=== PATIENT | female | born 1965 | race Caucasian/White ===

== ENCOUNTER 2023-03-15 16:12 | Emergency (ER) | payer BC, SELFPAY ==
[2023-03-15] VITALS (30 sets, daily range): BP systolic 135–152; BP diastolic 84–98; PULSE 50–72; RESP 7–14; TEMP 35.6; O2SAT 93–98; BMI 27.5
--- NOTE | 2023-03-15 16:30 | CRLHL7_ITS ---
For Patients: As a result of the Century Cures Act, medical imaging exams and procedure reports are released immediately into your electronic medical record. You may view this report before your referring provider. If you have questions, please contact your health care provider. INDICATION: Weakness. TECHNIQUE: CT of the head without contrast. Coronal and sagittal reformats are included. COMPARISON: Head CT from 04/02/2013. FINDINGS: No CT evidence of acute cortical infarct. No loss of yao white matter differentiation. No hyperdense vessels to suggest intracranial thrombus. No acute intracranial hemorrhage. No mass effect or midline shift. No hydrocephalus or extra-axial collections. White matter is within normal limits for age. Mild generalized parenchymal volume loss. No acute osseous abnormalities. Left-sided mastoidectomy changes with soft tissue filling the external auditory canal and extending into the middle ear cleft. Normal soft tissues. IMPRESSION: IMPRESSION:1. No CT evidence of acute cortical infarct. No acute intracranial hemorrhage. No other acute intracranial findings. Please note that all CT scans at this facility use dose modulation, iterative reconstruction, and/or weight-based dosing when appropriate to reduce radiation dose to as low as reasonably achievable. Dictated by Benson Harvey MD @ 03/15/2023 5:55:03 PM (Electronically Signed)
--- NOTE | 2023-03-15 16:35 | ED.GENADULT ---
HPI - General Adult General Chief complaint: Weakness Stated complaint: Tired Time Seen by Provider: 03/15/23 16:17 History of Present Illness HPI narrative: Patient is a 58 year white female has history of depression, history of alcohol use in the past by chart review, was brought in [facility] from [facility] where she was having difficulty in managing and getting along and has had significant weakness. She feels when I discussed with her what happened that she might have double dosed on her medications. She denies any falls injuries. Paramedics noted she was quite somnolent, and has slurred speech she does not smell of alcohol or ever. Patient will be assessed in the ED per the above-mentioned complaints. At this point she denies any chest pain breathing problem weakness in her arms or legs other than generalized weakness. No falls trauma or injury by her report. she denies narcotic use Related Data Home Medications Medication Instructions Recorded Confirmed atenolol 50 mg tablet 50 mg PO DAILY 03/15/23 03/15/23 buspirone 10 mg tablet 10 mg PO BID 03/15/23 03/15/23 clonazepam 1 mg tablet 1 mg PO BID 03/15/23 03/15/23 levetiracetam 500 mg tablet mg PO 03/15/23 primidone 50 mg tablet mg PO 03/15/23 tramadol 50 mg tablet 50 mg PO BID PRN pain 03/15/23 03/15/23 venlafaxine 150 mg 150 mg PO QAM 03/15/23 03/15/23 capsule,extended release 24 hr Allergies Allergy/AdvReac Type Severity Reaction Status Date / Time No Known Drug Allergies Allergy Verified 03/15/23 16:27 Review of Systems Status of ROS: Reports: 6 or more systems reviewed and unremarkable except as noted in History and below [facility] Social History Smoking Status: Unknown if ever smoked Exam Narrative: Exam Narrative: Objective vital signs show her respiratory rate slightly slow O2 sat excellent Alert orient x3 although somewhat slurred speech and slow to respond. She does not have any focal neurologic findings on upper lower extremities no facial asymmetry Her cognition appears normal when she does speak and answer questions Neck is supple no trauma about the head lungs are clear heart rhythm regular without murmur abdomen benign soft extremities are no edema neurologic nonfocal , moves all extremities Const: Vital Signs, click to edit/add: Vital Signs - 24 hr 03/15/23 16:21 03/15/23 16:30 03/15/23 16:42 Temperature 96.0 F L Pulse Rate 51 L Pulse Rate [Pulse Oximeter] 53 L Respiratory Rate 10 L Blood Pressure Blood Pressure [Ri ght Upper Arm] 145/95 H Pulse Oximetry 97 96 98 Oxygen Delivery Me thod Room Air 03/15/23 16:45 03/15/23 16:55 03/15/23 17:01 Temperature Pulse Rate 50 L Pulse Rate [Pulse Oximeter] Respiratory Rate 12 Blood Pressure 139/91 H Blood Pressure [Ri ght Upper Arm] Pulse Oximetry 94 Oxygen Delivery Me thod 03/15/23 17:02 03/15/23 17:15 03/15/23 17:37 Temperature Pulse Rate 61 54 L Pulse Rate [Pulse Oximeter] Respiratory Rate 7 L Blood Pressure 149/90 H Blood Pressure [Ri ght Upper Arm] Pulse Oximetry 97 96 Oxygen Delivery Me thod 03/15/23 17:45 03/15/23 18:00 03/15/23 18:01 Temperature Pulse Rate 66 60 Pulse Rate [Pulse Oximeter] Respiratory Rate 12 Blood Pressure Blood Pressure [Ri ght Upper Arm] Pulse Oximetry 95 98 Oxygen Delivery Me thod 03/15/23 18:02 03/15/23 18:15 03/15/23 18:17 Temperature Pulse Rate 60 55 L Pulse Rate [Pulse Oximeter] Respiratory Rate 14 Blood Pressure 141/91 H Blood Pressure [Ri ght Upper Arm] Pulse Oximetry 95 95 Oxygen Delivery Me thod Course Vital Signs Vital signs: Initial Vital Signs Temperature 96.0 F L 03/15/23 16:21 Temperature Source Temporal Artery Scan 03/15/23 16:21 Pulse Rate 53 L 03/15/23 16:21 Respiratory Rate 10 L 03/15/23 16:21 Blood Pressure 145/95 H 03/15/23 16:21 Blood Pressure Mean 111 H 03/15/23 16:21 Blood Pressure Position Supine 03/15/23 16:21 Pulse Oximetry 97 03/15/23 16:21 Oxygen Delivery Method Room Air 03/15/23 16:21 Vital Signs Temperature 96.0 F L 03/15/23 16:21 Pulse Rate 53 L 05/17/23 16:21 Respiratory Rate 10 L 03/15/23 16:21 Blood Pressure 145/95 H 03/15/23 16:21 Pulse Oximetry 97 03/15/23 16:21 Oxygen Delivery Method Room Air 03/15/23 16:21 Temperature 96.0 F L 03/15/23 16:21 Pulse Rate 55 L 03/15/23 20:45 Respiratory Rate 14 03/15/23 19:34 Blood Pressure 135/84 03/15/23 20:03 Pulse Oximetry 93 03/15/23 20:45 Oxygen Delivery Method Room Air 03/15/23 16:21 Medical Decision Making MDM Narrative Medical decision making narrative: [age] year white female with history of depression, history of alcohol use presents with significant weakness, somnolence, inability to care for self at home. At this point I think she certainly could have taken a double dose of medication, she does have Klonopin on her list that could certainly be sedating. She should have the above studies including a CT scan of the head, lab studies, urine tox will give IV fluid, will give Narcan 2 mg IV. Patient likely will need to be observed for a lengthy period of time and will make plans for observation status in the hospital pending her blood and imaging studies. Addendum: I do not have a lot of past history on the patient, but given that she is on tramadol, Klonopin, primidone and may have taken a double dose of the certainly is could be very sedating for prolonged period. Will call poison Control make sure they do not have any other recommendations. At this point I think she may need prolonged monitoring and may put in the hospital for that reason perhaps even social service consult as needed regarding her home situation. Patient's head CT is read as negative by Radiology, EKG shows sinus bradycardia rate of 49 beats per minute incomplete right bundle-branch block some T-wave inversion, there is no old EKG for comparison, the patient's white count hemoglobin are normal. Urinalysis basically negative. We did discuss with poison Control they felt maximal effect will be about 8:00 a.m. tonight from her ingestion or potential extra dosage of medications, she reports that was unintentional, at this point I think it be reasonable to observe her in the ED see how she is doing and if she is doing well and labs all reassuring I think she could probably go home later tonight. For addendum: 6:38 p.m. the patient has a CT scan of the head looks unremarkable, her laboratory studies show normal white count hemoglobin as mention normal INR ER profile is unremarkable CRP is 1.9, urinalysis looks negative, salicylate negative urine tox screen is positive for barbiturates and she is on primidone Tylenol is negative, alcohol level is 0.16% which is twice the legal limit of intoxication. Also positive for marijuana, troponin is negative. I think given the patient's alcohol level the fact that she is already on some sedating medications and the fact that she is waking up more active able to drink and eat a small amount of food and has reassuring labs studies I think we can allow her to go home later if she is doing better she denies any chest pain, breathing problem, fevers chills. I think most of her issues from alcohol intoxication mixed with her medications at home and she is clearing these. poison Control felt that she is able to go home later and that she should be clearing most of her drugged by about 8:00 a.m., she will need a responsible adult to get her home later I think we can observe her for the next several hours if she is clinically not intoxicated up walking in stable we can allow to go home. Lab Data Labs: Lab Results 03/15/23 03/15/23 03/15/23 Range/Units 16:27 16:31 16:49 WBC 4.90 (4.50-11.00) K/uL RBC 4.47 (4.00-5.20) m/uL Hgb 14.4 (12.0-16.0) gm/dL Hct 43.2 (33.0-51.0) % MCV 97 (80-100) fL MCH 32 (26-34) pg MCHC 33 (32-36) gm/dL RDW Coeff of Elliot 12.5 (11.5-15.5) % Plt Count 239 (140-440) K/uL Neut % (Auto) 62.3 (42.0-72.0) % Lymph % (Auto) 30.8 (20-44) % [place] % (Auto) 6.5 (0.0-11.0) % Eos % (Auto) 0.2 (0.0-7.0) % Baso % (Auto) 0.2 (0.0-3.0) % Neut # (Auto) 3.05 (1.7-7.0) K/uL Lymph # (Auto) 1.51 (0.90-2.90) K/uL [place] # (Auto) 0.30 (0.00-0.90) K/UL Eos # (Auto) 0.01 (0.00-0.50) K/uL Baso # (Auto) 0.01 (0.00-0.30) K/uL INR 0.95 (0.91-1.10) Sodium 135 (135-149) mmol/L Potassium 3.9 (3.6-5.1) mmol/L Chloride 99 (96-114) mmol/L Carbon Dioxide 26 (20-32) mmol/L BUN 7 (7-30) mg/dL Creatinine 0.6 (0.5-1.5) mg/dL Estimated Creat Clear 93.09 Estimated GFR 105 ml/min Glucose 81 (60-115) mg/dL Calcium 9.0 (8.4-10.6) mg/dL Total Bilirubin 0.3 (0.1-1.5) mg/dL Direct Bilirubin 0.2 (0.0-0.5) mg/dL AST 27 (12-35) U/L ALT 16 (4-35) U/L Alkaline Phosphatase 62 (40-150) U/L C-Reactive Protein 1.9 H (0.5-1.0) mg/dL Total Protein 7.5 (6.0-8.3) g/dL Albumin 4.5 (3.3-5.0) g/dL Urine Color Yellow (Yellow) Urine Appearance Clear (Clear) Urine pH 6.0 (5.0-8.5) Ur Specific [place] <= 1.005 (1.000-1.030) Urine Protein Negative (Negative) Urine Glucose (UA) Negative (Negative) Urine Ketones Negative (Negative) Urine Blood Negative (Negative) Urine Nitrite Negative (Negative) Urine Bilirubin Negative (Negative) Urine Urobilinogen 0.2 (0.2-1.0) Ur Leukocyte Esterase Negative (Negative) Urine RBC 0-2 (0-2) Urine WBC 0-2 (0-5) Ur Squamous Epith Cells None (None-Few) Urine Bacteria None (None) Salicylates < 1.0 L (1.0-10) mg/dL Urine Opiates Screen Negative (Negative) Ur Oxycodone Screen Negative (Negative) Urine Methadone Screen Negative (Negative) Ur Propoxyphene Screen Negative (Negative) Acetaminophen < 10.0 L (10.0-30.0) ug/mL Ur Barbiturates Screen POSITIVE A* (Negative) U Tricyclic Antidepress Negative (Negative) Ur Phencyclidine Scrn Negative (Negative) Ur Amphetamines Screen Negative (Negative) U Methamphetamines Scrn Negative (Negative) U Benzodiazepines Scrn Negative (Negative) Urine Cocaine Screen Negative (Negative) U Marijuana (THC) Screen POSITIVE A* (Negative) Ur Drug Screen Comment See Note Ethyl Alcohol 0.16 H (0.01-0.03) % SARS-CoV-2 (PCR) Negative SARS-CoV-2 (Negative) Influenza Type A (PCR) Negative PCR FLU A (Negative) Influenza Type B (PCR) Negative PCR FLU B (Negative) RSV (PCR) Negative PCR RSV (Negative) POC Troponin I 0.00 L (0.01-0.04) ng/ml Discharge Plan Discharge Clinical Impression: Somnolence, Alcohol intoxication Patient Disposition: Home w/ Parent or Adult Condition: Stable Instructions: Abuse of Alcohol (ED), Medication Safety for Older Adults (ED) Additional Instructions: Avoid alcohol, discuss her medication use with your family doctor, recommend stay with someone tonight, light diet, return as needed. Activity Level: Light activity Discharge Diet: Full Liquid Prescriptions: No Action primidone 50 mg tablet PO levetiracetam 500 mg tablet PO clonazepam 1 mg tablet 1 mg PO BID venlafaxine 150 mg capsule,extended release 24hr 150 mg PO QAM tramadol 50 mg tablet 50 mg PO BID PRN (Reason: pain) buspirone 10 mg tablet 10 mg PO BID atenolol 50 mg tablet 50 mg PO DAILY Stand Alone Forms: Off[facility] Info Instructions
[2023-03-15] MEDS: 0.9 % SODIUM CHLORIDE 1000 ml 1,000 ML 6000 ML IV (16:39)
[2023-03-15] MEDS: NALOXONE 1 MG/ML SYRINGE 2 MG IV (16:39)
[2023-03-15 16:46] LABS: Amphetamine Screen Urine Negative (Negative); Appearance Urine Clear (Clear); Benzodiazepines Screen Urine Negative (Negative); Bilirubin Urine Negative (Negative); Blood Urine Negative (Negative); Cocaine Screen Urine Negative (Negative); Color Urine Yellow (Yellow); Glucose Urine Negative (Negative); Ketones Urine Negative (Negative); Leukocyte Esterase Urine Negative (Negative); Methadone Screen Urine Negative (Negative); Methamphetamines Screen Urine Negative (Negative); Nitrite Urine Negative (Negative); Opiate Screen Urine Negative (Negative); Oxycodone Screen Urine Negative (Negative); Phencyclidine Screen Urine Negative (Negative); Protein Urine Negative (Negative); Specific Gravity Urine <= 1.005 (1.000-1.030); Tricyclic Antidepressant Urine Negative (Negative); Urobilinogen Urine 0.2 (0.2-1.0)
[2023-03-15 16:50] LABS: Cannabinoid Screen Urine POSITIVE (Negative)
[2023-03-15 16:51] LABS: Barbiturate Screen Urine POSITIVE (Negative)
[2023-03-15 16:54] LABS: RBC Urine 0-2 (0-2); WBC Urine 0-2 (0-5)
--- NOTE | 2023-03-15 17:00 | ED.NURSE ---
Poison control contacted for recommendations. PC recommends monitoring for ENDOSCOPY REGISTERED NURSE depression, supportive care for symptoms. Due to uncertain time of ingestion and unknown dosages, PC recommend monitoring pt overnight.
[2023-03-15 17:25] LABS: Basophils Absolute Auto 0.01 K/uL (0.00-0.30); Basophils Percent Auto 0.2 % (0.0-3.0); Eosinophils Absolute Auto 0.01 K/uL (0.00-0.50); Eosinophils Percent Auto 0.2 % (0.0-7.0); Hematocrit 43.2 % (33.0-51.0); Hemoglobin* 14.4 gm/dL (12.0-16.0); Lymphocytes Absolute Auto 1.51 K/uL (0.90-2.90); Lymphocytes Percent Auto 30.8 % (20-44); Mean Corpuscular HGB Conc 33 gm/dL (32-36); Mean Corpuscular Hemoglobin 32 pg (26-34); Mean Corpuscular Volume 97 fL (80-100); Monocytes Percent Auto 6.5 % (0.0-11.0); Neutrophils Absolute Auto 3.05 K/uL (1.7-7.0); Neutrophils Percent Auto 62.3 % (42.0-72.0); Platelet Count* 239 K/uL (140-440); RDW Coefficient of Variation % 12.5 % (11.5-15.5); Red Blood Count 4.47 m/uL (4.00-5.20)
[2023-03-15 17:32] LABS: Slide Review Reflex No
--- NOTE | 2023-03-15 17:48 | ED.NURSE ---
Pt more alert at this time, is Oriented x4. Pt is still slurring her words a bit. Pt was able to stand and pivot independently to use the commode. Pt is making phone calls independently.
[2023-03-15 18:08] LABS: Albumin* 4.5 g/dL (3.3-5.0); Chloride* 99 mmol/L (96-114)
[2023-03-15 18:09] LABS: Potassium* 3.9 mmol/L (3.6-5.1); Sodium* 135 mmol/L (135-149)
[2023-03-15 18:11] LABS: Creatinine* 0.6 mg/dL (0.5-1.5); Est. Creatinine Clearance* 93.09; Estimated Glomerular Filt Rate 105 ml/min
[2023-03-15 18:12] LABS: Alanine Aminotransferase* 16 U/L (4-35); Alkaline Phosphatase* 62 U/L (40-150); Aspartate Amino Transferase* 27 U/L (12-35); Bilirubin Direct* 0.2 mg/dL (0.0-0.5); Bilirubin Total* 0.3 mg/dL (0.1-1.5); Blood Urea Nitrogen* 7 mg/dL (7-30); Carbon Dioxide* 26 mmol/L (20-32); Glucose* 81 mg/dL (60-115); Total Protein* 7.5 g/dL (6.0-8.3)
[2023-03-15 18:13] LABS: PCR FLU A Negative PCR FLU A (Negative); PCR FLU B Negative PCR FLU B (Negative); PCR RSV Negative PCR RSV (Negative)
[2023-03-15 18:13] LABS: Ethanol* 0.16 % (0.01-0.03)
[2023-03-15 18:14] LABS: C Reactive Protein* 1.9 mg/dL (0.5-1.0); INR 0.95 (0.91-1.10); Prothrombin Time 13.2 Seconds
[2023-03-15 18:14] LABS: SARS PCR* Negative SARS-CoV-2 (Negative)
[2023-03-15 18:23] LABS: Acetaminophen* < 10.0 ug/mL (10.0-30.0); Salicylate* < 1.0 mg/dL (1.0-10)
[2023-03-15] MEDS: ACETAMINOPHEN 500 MG TABLET 1000 MG PO (18:28)
--- NOTE | 2023-03-15 19:30 | ED.NURSE ---
Pt road tested with walker as assistive device. Pt tolerates ambulation well independently with walker. Pt uses a walker at home to ambulate normally. updated.
--- NOTE | 2023-03-15 20:27 | ED.NURSE ---
[place] provided to patient.
== END 2023-03-15 22:07 | disposition home or self-care (01) ==
PROVIDERS: Emergency Provider Family Medicine; PCP Family Medicine
DX: R40.0 Somnolence (principal); R47.81 Slurred speech
CPT/HCPCS: 36415; 70450; 80048; 80076; 80143; 80179; 80306; 81001; 82077; 84484; 85025; 85610; 86140; 87040; 87086; 87631; 93005; 94761; 99284; 99285; A9270; J2310; J7030

== ENCOUNTER 2023-05-01 11:00 | Emergency (ER) | payer BC, SELFPAY ==
[2023-05-01] VITALS (29 sets, daily range): BP systolic 138–159; BP diastolic 95–119; PULSE 99–134; RESP 20; TEMP 36.7; O2SAT 87–97; BMI 27.5
--- NOTE | 2023-05-01 11:38 | ED.NURSE ---
Contacted daughter, Ellie about patient being in the ED. Daughter would like an update. FELIPE Avila taking over patient care.
--- NOTE | 2023-05-01 12:07 | ED.GENADULT ---
HPI - General Adult General Chief complaint: Neuro Symptoms/Altered Deficit Stated complaint: Severe tremors Time Seen by Provider: 05/01/23 11:28 History of Present Illness HPI narrative: This 58-year-old female comes in with tremors. She has a history of tremors but states that they have been worsening over the past 6 months. Today it is significantly worse despite taking her medications which include clonazepam, primidone, and Keppra. She does report a significant headache today. She does not have any recent injury event. She did have a small drink of alcohol last night but states that this is not symptoms of withdrawal. She has generalized slow tremors involving her whole body. At time she has difficulty with speech related to this. Related Data Home Medications Medication Instructions Recorded Confirmed atenolol 50 mg tablet 50 mg PO DAILY 03/15/23 05/01/23 buspirone 10 mg tablet 10 mg PO BID 03/15/23 05/01/23 clonazepam 1 mg tablet 1 mg PO BID 03/15/23 05/01/23 levetiracetam 500 mg tablet mg PO 03/15/23 primidone 50 mg tablet 50 mg PO 03/15/23 tramadol 50 mg tablet 50 mg PO BID PRN pain 03/15/23 05/01/23 venlafaxine 150 mg 150 mg PO QAM 03/15/23 05/01/23 capsule,extended release 24 hr Allergies Allergy/AdvReac Type Severity Reaction Status Date / Time No Known Drug Allergies Allergy Verified 03/15/23 16:27 Review of Systems Status of ROS: Reports: 10 or more systems reviewed and unremarkable except as noted in History and below Narrative: Constitutional: No fevers, no weight gain or loss. Eyes: No discharge. No vision changes. HENT: No congestion, no sore throat, no ear pain. Cardiovascular: No chest pain, no palpitations. Respiratory: No shortness of breath, no wheezes, no cough. Gastrointestinal: No abdominal pain, no vomiting, no diarrhea. Genitourinary: No dysuria, no hematuria. Musculoskeletal: Normal range of motion. Skin: No rashes, no pruritis. Neurological: Tremors as described above. No unilateral weakness. Endo/Heme/Allergies: No bruising or bleeding. No polydipsia. Pysch: no suicidality, no anxiety, no insomnia. All other systems reviewed and are negative. PFSH PFSH Social History Smoking Status: Unknown if ever smoked Exam Narrative: Exam Narrative: Constitutional: Well-developed, well-nourished, no acute distress. HEENT: Normocephalic, atraumatic. Neck: Normal range of motion. Nontender. Supple. Heart: Regular. No murmurs. Normal rate. Intact distal pulses. Lungs: Clear to auscultation. No chest discomfort. No wheezes, rhonchi, or rales. Abdomen: Normal bowel sounds. Nontender. No rebound tenderness. Genitalia: Deferred. Back: No midline tenderness. Normal range of motion. Extremities: Normal range of motion. No injury. Skin: Intact. No rash. Warm. No erythema or pallor. Neurologic: No altered sensation. No weakness. Alert and oriented. Generalized tremors. Psychiatric: No suicidality. No anxiety or depression. No insomnia. Nursing notes and vitals signs are reviewed. Const: Vital Signs, click to edit/add: Vital Signs - 24 hr 05/01/23 11:09 05/01/23 11:19 05/01/23 11:20 Temperature 98.1 F Pulse Rate 115 H 116 H Pulse Rate [Left P ulse Oximeter] 110 H Pulse Rate [Pulse Oximeter] Respiratory Rate 20 Blood Pressure 157/118 H Blood Pressure [Le ft Arm] Blood Pressure [Le ft Upper Arm] 157/118 H Pulse Oximetry 95 96 [facility] 05/01/23 11:30 05/01/23 11:32 05/01/23 11:45 Temperature Pulse Rate 110 H 107 H 104 H Pulse Rate [Left P ulse Oximeter] Pulse Rate [Pulse Oximeter] Respiratory Rate Blood Pressure 139/112 H Blood Pressure [Le ft Arm] Blood Pressure [Le ft Upper Arm] Pulse Oximetry 95 94 87 L [facility] 05/01/23 11:47 05/01/23 11:48 05/01/23 12:01 Temperature Pulse Rate 107 H 114 H 99 Pulse Rate [Left P ulse Oximeter] Pulse Rate [Pulse Oximeter] Respiratory Rate Blood Pressure 157/112 H Blood Pressure [Le ft Arm] Blood Pressure [Le ft Upper Arm] Pulse Oximetry 97 97 97 Oxygen Delivery Me thod 05/01/23 12:02 05/01/23 12:15 05/01/23 12:17 Temperature Pulse Rate 109 H 114 H 113 H Pulse Rate [Left P ulse Oximeter] Pulse Rate [Pulse Oximeter] Respiratory Rate Blood Pressure 152/119 H 159/116 H Blood Pressure [Le ft Arm] Blood Pressure [Le ft Upper Arm] Pulse Oximetry 97 94 94 Oxygen Delivery Me thod 05/01/23 12:18 05/01/23 12:30 05/01/23 12:32 Temperature Pulse Rate 122 H 112 H 108 H Pulse Rate [Left P ulse Oximeter] Pulse Rate [Pulse Oximeter] Respiratory Rate Blood Pressure 153/104 H Blood Pressure [Le ft Arm] Blood Pressure [Le ft Upper Arm] Pulse Oximetry 96 95 97 Oxygen Delivery Me thod 05/01/23 12:42 05/01/23 12:45 05/01/23 12:47 Temperature Pulse Rate 104 H 103 H Pulse Rate [Left P ulse Oximeter] Pulse Rate [Pulse Oximeter] 107 H Respiratory Rate Blood Pressure 139/95 H Blood Pressure [Le ft Arm] 153/104 H Blood Pressure [Le ft Upper Arm] Pulse Oximetry 92 92 Oxygen Delivery Me thod 05/01/23 13:30 Temperature Pulse Rate Pulse Rate [Left P ulse Oximeter] Pulse Rate [Pulse Oximeter] 101 H Respiratory Rate Blood Pressure Blood Pressure [Le ft Arm] 154/103 H Blood Pressure [Le ft Upper Arm] Pulse Oximetry Oxygen Delivery Sd thod Course Vital Signs Vital signs: Initial Vital Signs Temperature 98.1 F 05/01/23 11:09 Temperature Source Temporal Artery Scan 05/01/23 11:09 Pulse Rate 110 H 05/01/23 11:09 Pulse Rhythm Regular, Irregular 05/01/23 11:09 Respiratory Rate 20 05/01/23 11:09 Blood Pressure 157/118 H 05/01/23 11:09 Blood Pressure Mean 131 H 05/01/23 11:09 Blood Pressure Position Supine 05/01/23 11:09 Pulse Oximetry 95 05/01/23 11:09 Oxygen Delivery Method Room Air 05/01/23 11:09 Vital Signs Temperature 98.1 F 05/01/23 11:09 Pulse Rate 110 H 05/01/23 11:09 Respiratory Rate 20 05/01/23 11:09 Blood Pressure 157/118 H 05/01/23 11:09 Pulse Oximetry 95 05/01/23 11:09 Oxygen Delivery Method Room Air 05/01/23 11:09 Temperature 98.1 F 05/01/23 11:09 Pulse Rate 101 H 05/01/23 13:30 Respiratory Rate 20 05/01/23 11:09 Blood Pressure 154/103 H 05/01/23 13:30 Pulse Oximetry 92 05/01/23 12:47 Oxygen Delivery Method Room Air 05/01/23 11:09 Medical Decision Making MDM Narrative Medical decision making narrative: This patient comes in with worsening tremors as described above. She does have a history of tremors and is taking medications to treat them. She states that tremors were significantly worse today and she also reports a headache with some nausea. CT imaging is not available today because the scanner is not functioning. The patient does not have any new neurologic deficit. She does have generalized tremors when awake. An IV was established where labs were drawn and returned with normal results. Her neurologic exam otherwise also is normal. She did receive a mg of Ativan which brought improvement to her symptoms. When I came into her room for a 2nd visit she had no tremors as she was apparently sleeping. When I aroused her than she began to have tremors again but they were distinctly reduced compared to the initial visit. The patient did receive another mg of Ativan intravenously and at my 3rd visit again she was not at all tremulous while she was resting but when I began to speak to her she had some mild movements. Patient states that her headache and nausea are much improved. I did discuss options of transferring her elsewhere for CT imaging or waiting for an opening for MRI evaluation. She feels okay to return home. She is likely back to her baseline. She states that she has a follow-up appointment with her neurologist in 2 days and feels okay to return home. Lab Data Labs: Lab Results 05/01/23 Range/Units 12:20 WBC 5.68 (4.50-11.00) K/uL RBC 4.62 (4.00-5.20) m/uL Hgb 15.0 (12.0-16.0) gm/dL Hct 43.6 (33.0-51.0) % MCV 94 (80-100) fL MCH 33 (26-34) pg MCHC 34 (32-36) gm/dL RDW Coeff of [place] 13.3 (11.5-15.5) % Plt Count 250 (140-440) K/uL Neut % (Auto) 65.4 (42.0-72.0) % Lymph % (Auto) 25.7 (20-44) % [place] % (Auto) 8.3 (0.0-11.0) % Eos % (Auto) 0.0 (0.0-7.0) % Baso % (Auto) 0.4 (0.0-3.0) % Neut # (Auto) 3.72 (1.7-7.0) K/uL Lymph # (Auto) 1.46 (0.90-2.90) K/uL [place] # (Auto) 0.50 (0.00-0.90) K/UL Eos # (Auto) 0.00 (0.00-0.50) K/uL Baso # (Auto) 0.02 (0.00-0.30) K/uL Sodium 139 (135-149) mmol/L Potassium 3.9 (3.6-5.1) mmol/L Chloride 104 (96-114) mmol/L Carbon Dioxide 25 (20-32) mmol/L BUN 7 (7-30) mg/dL Creatinine 0.5 (0.5-1.5) mg/dL Estimated Creat Clear 111.70 Estimated GFR 109 ml/min Glucose 116 H (60-115) mg/dL Calcium 9.3 (8.4-10.6) mg/dL Discharge Plan Discharge Clinical Impression: Tremors of nervous system Patient Disposition: Home, Self-Care Condition: Improved Additional Instructions: Continue current plans. Follow up with Neurology Clinic as scheduled. Return if worsening symptoms occur. Prescriptions: No Action primidone 50 mg tablet 50 mg PO levetiracetam 500 mg tablet PO clonazepam 1 mg tablet 1 mg PO BID venlafaxine 150 mg capsule,extended release 24hr 150 mg PO QAM tramadol 50 mg tablet 50 mg PO BID PRN (Reason: pain) buspirone 10 mg tablet 10 mg PO BID atenolol 50 mg tablet 50 mg PO DAILY Follow Up/Referrals: Aimee Acosta DO [Primary Care Provider] - Stand Alone Forms: [facility] Info Instructions
[2023-05-01 12:31] LABS: Basophils Absolute Auto 0.02 K/uL (0.00-0.30); Basophils Percent Auto 0.4 % (0.0-3.0); Hematocrit 43.6 % (33.0-51.0); Immature Granulocytes Abs Auto 0.01 K/uL (0.00-0.30); Immature Granulocytes Pct Auto 0.2 %; Lymphocytes Absolute Auto 1.46 K/uL (0.90-2.90); Lymphocytes Percent Auto 25.7 % (20-44); Mean Corpuscular HGB Conc 34 gm/dL (32-36); Mean Corpuscular Hemoglobin 33 pg (26-34); Mean Corpuscular Volume 94 fL (80-100); Monocytes Percent Auto 8.3 % (0.0-11.0); Neutrophils Absolute Auto 3.72 K/uL (1.7-7.0); Neutrophils Percent Auto 65.4 % (42.0-72.0); Platelet Count* 250 K/uL (140-440); RDW Coefficient of Variation % 13.3 % (11.5-15.5); Red Blood Count 4.62 m/uL (4.00-5.20); White Blood Count* 5.68 K/uL (4.50-11.00)
[2023-05-01] MEDS: LORazepam 2 MG/ML inj 1 MG IV ×2 (12:33→13:18)
[2023-05-01 12:48] LABS: Chloride* 104 mmol/L (96-114); Potassium* 3.9 mmol/L (3.6-5.1); Slide Review Reflex No; Sodium* 139 mmol/L (135-149)
[2023-05-01 12:50] LABS: Creatinine* 0.5 mg/dL (0.5-1.5); Estimated Glomerular Filt Rate 109 ml/min
[2023-05-01 12:51] LABS: Blood Urea Nitrogen* 7 mg/dL (7-30); Calcium* 9.3 mg/dL (8.4-10.6); Carbon Dioxide* 25 mmol/L (20-32); Glucose* 116 mg/dL (60-115)
== END 2023-05-01 14:55 | disposition home or self-care (01) ==
PROVIDERS: Emergency Provider Emergency Medicine Emergency Medical Services; PCP Family Medicine
DX: R25.1 Tremor, unspecified (principal); G99.8 Other specified disorders of nervous system in diseases classified elsewhere
CPT/HCPCS: 36415; 80048; 85025; 96374; 96376; 99283; 99284; J2060

== ENCOUNTER 2023-06-02 16:13 | Emergency (ER) | payer BC, SELFPAY ==
[2023-06-02] VITALS (20 sets, daily range): BP systolic 124–159; BP diastolic 82–102; PULSE 53–95; RESP 12; TEMP 36.1; O2SAT 90–99; BMI 27.5
--- NOTE | 2023-06-02 16:46 | CRLHL7_ITS ---
For Patients: As a result of the Century Cures Act, medical imaging exams and procedure reports are released immediately into your electronic medical record. You may view this report before your referring provider. If you have questions, please contact your health care provider. INDICATION: Right upper quadrant pain COMPARISON: CT abdomen and pelvis on September 03, 2018 TECHNIQUE: Real time hardy scale imaging and color Doppler analysis was performed of the right upper quadrant. FINDINGS: The patient`s liver is of normal size and is diffusely echogenic. No suspicious lesions on the provided images. There is no evidence of ascites. The gallbladder is of normal size and there is no evidence of intraluminal stones or sludge. The gallbladder wall measures two mm in thickness. The common bile duct is of normal size and measures 5 mm in diameter at the level of the stephanie hepatis. The visualized pancreas demonstrates a prominent pancreatic duct which measures approximately 4-6 mm with no mass on the provided images. There is no evidence of a stone or hydronephrosis within the right kidney. The right kidney measures 9.4 x 3.7 x 5.3 cm in length. The proximal abdominal aorta is normal in caliber measuring 2.1 cm. IMPRESSION: 1. Normal sonographic appearance of the gallbladder. 2. Liver is diffusely echogenic which may be seen in the setting of parenchymal disease such as steatosis. 3. Visualized pancreas demonstrates a prominent pancreatic duct which measures approximately 4-6 mm with no mass on the provided images. Consider a CT abdomen and pelvis with intravenous contrast for further evaluation. Dictated by Lisy Martinez MD @ 06/02/2023 6:12:09 PM (Electronically Signed)
--- NOTE | 2023-06-02 17:11 | ED.GENADULT ---
HPI - General Adult General Chief complaint: Abdominal Pain Stated complaint: Abdominal pain Time Seen by Provider: 06/02/23 16:40 Source: patient Mode of arrival: ambulatory Limitations: no limitations History of Present Illness HPI narrative: 58-year-old female with a history of depression and alcohol use presenting today with right-sided abdominal pain. She states that the pain started yesterday. Nothing makes it better or worse. She states that she has not eaten anything for an unclear amount of days. She states that she just has no appetite. She also states that she has had decreased fluid intake. She states that she has diarrhea but can not tell me how many times per day. She has no urinary symptoms such as frequency, urgency or dysuria. Denies any blood in her urine. She denies vomiting, fevers, or chills. Last alcoholic drink was this morning. She states that she had a ?couple drinks?. She points to right upper quadrant and the right flank as areas of discomfort. Related Data Home Medications Medication Instructions Recorded Confirmed atenolol 50 mg tablet 50 mg PO DAILY 03/15/23 06/02/23 buspirone 10 mg tablet 10 mg PO BID 03/15/23 06/02/23 clonazepam 1 mg tablet 1 mg PO BID 03/15/23 06/02/23 levetiracetam 500 mg tablet 500 mg PO TID 03/15/23 06/02/23 primidone 50 mg tablet 100 mg PO TID 03/15/23 06/02/23 venlafaxine 150 mg 150 mg PO QAM 03/15/23 06/02/23 capsule,extended release 24 hr latanoprost 0.005 % eye drops 1 drp ophthalmic (eye) QPM 06/02/23 06/02/23 Allergies Allergy/AdvReac Type Severity Reaction Status Date / Time No Known Drug Allergies Allergy Verified 06/02/23 16:50 Review of Systems Status of ROS: Reports: 10 or more systems reviewed and unremarkable except as noted in History and below [facility] Social History Smoking Status: Unknown if ever smoked Non-prescribed substance use: denies use Exam Narrative: Exam Narrative: Well-nourished well-developed patient, acutely intoxicated. Cooperative. Answers questions appropriately. Patient speaks in full sentences without needing to catch their breath. Patient is sleepy, speech is slurred. HEENT: Normocephalic atraumatic. Pupils are equally round reactive to light, But generally dilated. Extraocular muscles are intact. Conjunctivae are moist without any icterus noted. Moist mucous membranes. Posterior pharynx is normal. Neck is soft without any lymphadenopathy or thyromegaly. No masses are appreciated. Cardiovascular: Heart is regular rate and rhythm S1 and S2 are present without any murmurs. Lungs: Clear to auscultation bilaterally no wheezes rhonchi or rales are appreciated. Patient takes deep breaths without any discomfort. Abdomen: Soft and nondistended with normal bowel sounds. No guarding or rebound. No masses or organomegaly appreciated. She does have epigastric tenderness and a positive Bauer sign. A Extremities: Bilateral lower extremities are without edema. Normal DP and PT pulses. Skin: Well perfused without any obvious rashes. Const: Vital Signs, click to edit/add: Vital Signs - 24 hr 06/02/23 16:34 06/02/23 16:36 06/02/23 16:39 Temperature 97.0 F L Pulse Rate 58 L 60 Pulse Rate [Pulse Oximeter] 95 Respiratory Rate 12 Blood Pressure 159/91 H Blood Pressure [Le ft Upper Arm] 159/91 H Pulse Oximetry 92 93 95 Oxygen Delivery [facility] Room Air 06/02/23 17:02 06/02/23 17:23 06/02/23 17:25 Temperature Pulse Rate 59 L Pulse Rate [Pulse Oximeter] Respiratory Rate Blood Pressure 124/82 Blood Pressure [Le ft Upper Arm] Pulse Oximetry 93 96 Oxygen Delivery [facility] 06/02/23 17:30 06/02/23 17:32 06/02/23 17:33 Temperature Pulse Rate 64 62 67 Pulse Rate [Pulse Oximeter] Respiratory Rate Blood Pressure 134/91 H Blood Pressure [Le ft Upper Arm] Pulse Oximetry 95 95 90 Oxygen Delivery Wi thod 06/02/23 18:00 06/02/23 18:02 06/02/23 18:07 Temperature Pulse Rate 71 67 Pulse Rate [Pulse Oximeter] Respiratory Rate Blood Pressure 141/87 H Blood Pressure [Le ft Upper Arm] Pulse Oximetry 96 95 Oxygen Delivery [facility] 06/02/23 18:30 06/02/23 18:32 Temperature Pulse Rate 53 L 65 Pulse Rate [Pulse Oximeter] Respiratory Rate Blood Pressure 132/98 H Blood Pressure [Le ft Upper Arm] Pulse Oximetry 97 95 Oxygen Delivery Me thod Course Course Hospital Course: IV was established and fluids started, patient was given a L of normal saline, and famotidine. Labs were nonspecific. She does not have an elevated white cell count and CRP is minimally elevated. Lactate slightly elevated, repeat lactate cannot be done secondary to the analyzer going down. Blood alcohol was 0.18. Urine drug screen positive for barbiturates. Ultrasound showed a prominent pancreatic duct and a CT scan was recommended for further imaging. CT scan did not show any abnormalities of the pancreas the pancreatic duct, did show Bladder wall thickening. Also showed an age indeterminate compression fracture of thoracic spine. Did re-evaluate the patient at this time, she states that she does not have any tenderness in the middle of her back. When I discussed the imaging results and lab work with the patient she did become very irritated. We discussed that at times discomfort can be caused by unknown reasons. This did not reassure the patient. Vital Signs Vital signs: Initial Vital Signs Temperature 97.0 F L 06/02/23 16:34 Temperature Source Temporal Artery Scan 06/02/23 16:34 Pulse Rate 95 06/02/23 16:34 Pulse Rhythm Regular 06/02/23 16:34 Respiratory Rate 12 06/02/23 16:34 Blood Pressure 159/91 H 06/02/23 16:34 Blood Pressure Mean 113 H 06/02/23 16:34 Blood Pressure Position Semi-Fowlers 06/02/23 16:34 Pulse Oximetry 92 06/02/23 16:34 Oxygen Delivery Method Room Air 06/02/23 16:34 Vital Signs Temperature 97.0 F L 06/02/23 16:34 Pulse Rate 95 06/02/23 16:34 Respiratory Rate 12 06/02/23 16:34 Blood Pressure 159/91 H 06/02/23 16:34 Pulse Oximetry 92 06/02/23 16:34 Oxygen Delivery Method Room Air 06/02/23 16:34 Temperature 97.0 F L 06/02/23 16:34 Pulse Rate 65 06/02/23 18:32 Respiratory Rate 12 06/02/23 16:34 Blood Pressure 132/98 H 06/02/23 18:32 Pulse Oximetry 95 06/02/23 18:32 Oxygen Delivery Method Room Air 06/02/23 16:34 Medical Decision Making MDM Narrative Medical decision making narrative: 58-year-old female, acutely intoxicated with abdominal discomfort. We discussed possible differential diagnoses including gastritis, peptic ulcer disease, small kidney stone. We discussed monitoring for a few days to see if the pain changes. I discussed with her that she should stop drinking alcohol and offered help/resources which she declined at this time. Medical Records Medical records reviewed: Yes I reviewed the patient's medical records Lab Data Lab results reviewed: Yes I reviewed the patient's lab results Labs: Lab Results 06/02/23 06/02/23 Range/Units 17:00 18:15 WBC 5.24 (4.50-11.00) K/uL RBC 4.43 (4.00-5.20) m/uL Hgb 14.4 (12.0-16.0) gm/dL Hct 43.1 (33.0-51.0) % MCV 97 (80-100) fL MCH 33 (26-34) pg MCHC 33 (32-36) gm/dL RDW Coeff of Elliot 13.5 (11.5-15.5) % Plt Count 284 (140-440) K/uL Neut % (Auto) 62.0 (42.0-72.0) % Lymph % (Auto) 30.0 (20-44) % [place] % (Auto) 7.6 (0.0-11.0) % Eos % (Auto) 0.0 (0.0-7.0) % Baso % (Auto) 0.4 (0.0-3.0) % Neut # (Auto) 3.25 (1.7-7.0) K/uL Lymph # (Auto) 1.57 (0.90-2.90) K/uL [place] # (Auto) 0.40 (0.00-0.90) K/UL Eos # (Auto) 0.00 (0.00-0.50) K/uL Baso # (Auto) 0.02 (0.00-0.30) K/uL Abs Immat Gran (auto) 0.00 (0.00-0.30) K/uL Imm/Tot Granulo (auto) 0.0 % Sodium 141 (135-149) mmol/L Potassium 3.5 L (3.6-5.1) mmol/L Chloride 106 (96-114) mmol/L Carbon Dioxide 23 (20-32) mmol/L BUN 6 L (7-30) mg/dL Creatinine 0.6 (0.5-1.5) mg/dL Estimated Creat Clear 93.09 Estimated GFR 105 ml/min Glucose 87 (60-115) mg/dL Lactate 2.0 H (0.5-1.9) mmol/L Calcium 9.3 (8.4-10.6) mg/dL Total Bilirubin 0.3 (0.1-1.5) mg/dL Direct Bilirubin 0.0 (0.0-0.5) mg/dL AST 27 (12-35) U/L ALT 17 (4-35) U/L Alkaline Phosphatase 73 (40-150) U/L C-Reactive Protein 2.6 H (0.5-1.0) mg/dL Total Protein 7.5 (6.0-8.3) g/dL Albumin 4.4 (3.3-5.0) g/dL Lipase 53 (23-300) U/L Urine Color Yellow (Yellow) Urine Appearance Clear (Clear) Urine pH 6.5 (5.0-8.5) Ur Specific [place] <= 1.005 (1.000-1.030) Urine Protein Negative (Negative) Urine Glucose (UA) Negative (Negative) Urine Ketones Negative (Negative) Urine Blood Negative (Negative) Urine Nitrite Negative (Negative) Urine Bilirubin Negative (Negative) Urine Urobilinogen 0.2 (0.2-1.0) Ur Leukocyte Esterase Negative (Negative) Urine RBC 0-2 (0-2) Urine WBC 0-2 (0-5) Ur Squamous Epith Cells Few (None-Few) Urine Bacteria None (None) Salicylates < 1.0 L (1.0-10) mg/dL Urine Opiates Screen Negative (Negative) Ur Oxycodone Screen Negative (Negative) Urine Methadone Screen Negative (Negative) Ur Propoxyphene Screen Negative (Negative) Acetaminophen < 10.0 L (10.0-30.0) ug/mL Ur Barbiturates Screen POSITIVE A (Negative) U Tricyclic Antidepress Negative (Negative) Ur Phencyclidine Scrn Negative (Negative) Ur Amphetamines Screen Negative (Negative) U Methamphetamines Scrn Negative (Negative) U Benzodiazepines Scrn Negative (Negative) Urine Cocaine Screen Negative (Negative) U Marijuana (THC) Screen Negative (Negative) Ur Drug Screen Comment See Note Ethyl Alcohol 0.18 H (0.01-0.03) % Imaging Data CT scan - abdomen: Attestation: I have reviewed the pertinent imaging results. Radiologist's impression: Contrast-enhanced CT of the abdomen and pelvis was performed after administration of 81 cc Isovue 370 IV. Coronal and sagittal reformats were obtained on an independent workstation. COMPARISON: Same-day right upper quadrant ultrasound. CT abdomen pelvis on September 03, 2018. FINDINGS: Chest: Lung bases: No suspicious pulmonary nodule or consolidation. No basilar effusion. Heart base: Unremarkable. Mediastinum: No hiatal hernia. Abdomen/Pelvis: Liver: Non-cirrhotic morphology. No suspicious lesion. Gallbladder: Unremarkable. Bile ducts: No intra or extrahepatic biliary ductal dilatation. Spleen: Normal in size. Splenule. Adrenal glands: Unremarkable. Kidneys: Symmetric enhancement with no hydronephrosis or nephrolithiasis bilaterally. Pancreas: Pancreatic duct is normal in caliber measuring 3 mm at the head. No mass or peripancreatic inflammation. Lymph nodes: No retroperitoneal, mesenteric, inguinal, or pelvic adenopathy by CT criteria. Bowel: Stomach appears grossly normal. Small and large bowel is normal in caliber, without obstruction. Normal appendix (). No pneumatosis, pneumoperitoneum or portal venous gas. Vascular structures: No AAA. The visceral vessels are patent. Patent portal and hepatic veins. Patent splenic and bilateral renal veins. No deep venous thrombosis. Peritoneum: No abdominal/pelvic ascites. Abdominal Wall: Unremarkable. Urinary bladder: Limited evaluation due to underdistention. Circumferential bladder wall thickening with mild mucosal hyperenhancement. Reproductive structures: Hysterectomy. MSK: Age-indeterminate compression fracture of L1 with approximately 20 % height loss and mild osseous retropulsion (), new compared to prior. No aggressive appearing lytic or blastic osseous lesion. Mild multilevel degenerative changes of the spine. IMPRESSION: 1. Age-indeterminate compression fracture of L1 with approximately 20 % height loss and mild osseous retropulsion, new compared to prior CT dated September 03, 2018. Correlate for point tenderness. 2. Normal CT appearance of the pancreas and right upper quadrant. Pancreatic duct is normal in caliber with no mass or peripancreatic inflammation. 3. Circumferential bladder wall thickening with mild mucosal hyper enhancement may be secondary to underdistention and/or cystitis of infectious or inflammatory etiology. Consider correlation with urinalysis and culture. US - abdomen: Attestation: I have reviewed the pertinent imaging results. Radiologist's impression: Right upper quadrant pain COMPARISON: CT abdomen and pelvis on September 03, 2018 TECHNIQUE: Real time hardy scale imaging and color Doppler analysis was performed of the right upper quadrant. FINDINGS: The patient`s liver is of normal size and is diffusely echogenic. No suspicious lesions on the provided images. There is no evidence of ascites. The gallbladder is of normal size and there is no evidence of intraluminal stones or sludge. The gallbladder wall measures two mm in thickness. The common bile duct is of normal size and measures 5 mm in diameter at the level of the stephanie hepatis. The visualized pancreas demonstrates a prominent pancreatic duct which measures approximately 4-6 mm with no mass on the provided images. There is no evidence of a stone or hydronephrosis within the right kidney. The right kidney measures 9.4 x 3.7 x 5.3 cm in length. The proximal abdominal aorta is normal in caliber measuring 2.1 cm. IMPRESSION: 1. Normal sonographic appearance of the gallbladder. 2. Liver is diffusely echogenic which may be seen in the setting of parenchymal disease such as steatosis. 3. Visualized pancreas demonstrates a prominent pancreatic duct which measures approximately 4-6 mm with no mass on the provided images. Consider a CT abdomen and pelvis with intravenous contrast for further evaluation. Discharge Plan Discharge Clinical Impression: Acute alcohol intoxication, Abdominal pain Patient Disposition: Home, Self-Care Condition: Stable Additional Instructions: Recommend of stinging from alcohol use until pain is resolved. Recommend daily omeprazole 20 mg daily-you can purchase this [id number]. This is an antacid medication that will reduce the amount of acid inside your stomach, which can help your discomfort. If you develop fever, vomiting or worsening pain, return to the ED. Otherwise you should follow-up with your primary care provider as needed. Prescriptions: No Action primidone 50 mg tablet 100 mg PO TID Rx Instructions: 2 tabs TID levetiracetam 500 mg tablet 500 mg PO TID Rx Instructions: 1000mg in the am, 1000mg at noon and 500 in the evening. clonazepam 1 mg tablet 1 mg PO BID venlafaxine 150 mg capsule,extended release 24hr 150 mg PO QAM buspirone 10 mg tablet 10 mg PO BID atenolol 50 mg tablet 50 mg PO DAILY latanoprost 0.005 % drops 1 drp ophthalmic (eye) QPM Follow Up/Referrals: Aimee Acosta DO [Primary Care Provider] - Stand Alone Forms: [employer] Info Instructions
[2023-06-02] MEDS: 0.9 % SODIUM CHLORIDE 1000 ml 1,000 ML IV (17:20)
[2023-06-02] MEDS: FAMOTIDINE 20 MG TABLET PO (17:20)
[2023-06-02 17:23] LABS: Albumin* 4.4 g/dL (3.3-5.0); Chloride* 106 mmol/L (96-114)
[2023-06-02 17:24] LABS: Potassium* 3.5 mmol/L (3.6-5.1); Sodium* 141 mmol/L (135-149)
[2023-06-02 17:26] LABS: Alkaline Phosphatase* 73 U/L (40-150); Aspartate Amino Transferase* 27 U/L (12-35); Bilirubin Total* 0.3 mg/dL (0.1-1.5); Blood Urea Nitrogen* 6 mg/dL (7-30); Carbon Dioxide* 23 mmol/L (20-32); Creatinine* 0.6 mg/dL (0.5-1.5); Est. Creatinine Clearance* 93.09; Estimated Glomerular Filt Rate 105 ml/min; Total Protein* 7.5 g/dL (6.0-8.3)
[2023-06-02 17:27] LABS: Alanine Aminotransferase* 17 U/L (4-35); Calcium* 9.3 mg/dL (8.4-10.6); Glucose* 87 mg/dL (60-115); Lipase* 53 U/L (23-300)
[2023-06-02 17:28] LABS: Ethanol* 0.18 % (0.01-0.03)
[2023-06-02 17:29] LABS: C Reactive Protein* 2.6 mg/dL (0.5-1.0)
[2023-06-02 17:36] LABS: Acetaminophen* < 10.0 ug/mL (10.0-30.0); Salicylate* < 1.0 mg/dL (1.0-10)
[2023-06-02 17:50] LABS: Basophils Absolute Auto 0.02 K/uL (0.00-0.30); Basophils Percent Auto 0.4 % (0.0-3.0); Hematocrit 43.1 % (33.0-51.0); Hemoglobin* 14.4 gm/dL (12.0-16.0); Lymphocytes Absolute Auto 1.57 K/uL (0.90-2.90); Mean Corpuscular HGB Conc 33 gm/dL (32-36); Mean Corpuscular Hemoglobin 33 pg (26-34); Mean Corpuscular Volume 97 fL (80-100); Monocytes Percent Auto 7.6 % (0.0-11.0); Neutrophils Absolute Auto 3.25 K/uL (1.7-7.0); Platelet Count* 284 K/uL (140-440); RDW Coefficient of Variation % 13.5 % (11.5-15.5); Red Blood Count 4.43 m/uL (4.00-5.20); White Blood Count* 5.24 K/uL (4.50-11.00)
[2023-06-02 17:51] LABS: Slide Review Reflex No
[2023-06-02 18:31] LABS: Appearance Urine Clear (Clear); Bilirubin Urine Negative (Negative); Blood Urine Negative (Negative); Color Urine Yellow (Yellow); Glucose Urine Negative (Negative); Ketones Urine Negative (Negative); Leukocyte Esterase Urine Negative (Negative); Nitrite Urine Negative (Negative); Protein Urine Negative (Negative); Specific Gravity Urine <= 1.005 (1.000-1.030); Urobilinogen Urine 0.2 (0.2-1.0); pH Urine 6.5 (5.0-8.5)
[2023-06-02 18:35] LABS: Amphetamine Screen Urine Negative (Negative); Barbiturate Screen Urine POSITIVE (Negative); Benzodiazepines Screen Urine Negative (Negative); Cannabinoid Screen Urine Negative (Negative); Cocaine Screen Urine Negative (Negative); Methadone Screen Urine Negative (Negative); Methamphetamines Screen Urine Negative (Negative); Opiate Screen Urine Negative (Negative); Oxycodone Screen Urine Negative (Negative); Phencyclidine Screen Urine Negative (Negative); Tricyclic Antidepressant Urine Negative (Negative)
--- NOTE | 2023-06-02 18:35 | CRLHL7_ITS ---
For Patients: As a result of the Century Cures Act, medical imaging exams and procedure reports are released immediately into your electronic medical record. You may view this report before your referring provider. If you have questions, please contact your health care provider. INDICATION: Epigastric and right upper quadrant pain TECHNIQUE: Contrast-enhanced CT of the abdomen and pelvis was performed after administration of 81 cc Isovue 370 IV. Coronal and sagittal reformats were obtained on an independent workstation. COMPARISON: Same-day right upper quadrant ultrasound. CT abdomen pelvis on September 03, 2018. FINDINGS: Chest: Lung bases: No suspicious pulmonary nodule or consolidation. No basilar effusion. Heart base: Unremarkable. Mediastinum: No hiatal hernia. Abdomen/Pelvis: Liver: Non-cirrhotic morphology. No suspicious lesion. Gallbladder: Unremarkable. Bile ducts: No intra or extrahepatic biliary ductal dilatation. Spleen: Normal in size. Splenule. Adrenal glands: Unremarkable. Kidneys: Symmetric enhancement with no hydronephrosis or nephrolithiasis bilaterally. Pancreas: Pancreatic duct is normal in caliber measuring 3 mm at the head. No mass or peripancreatic inflammation. Lymph nodes: No retroperitoneal, mesenteric, inguinal, or pelvic adenopathy by CT criteria. Bowel: Stomach appears grossly normal. Small and large bowel is normal in caliber, without obstruction. Normal appendix (). No pneumatosis, pneumoperitoneum or portal venous gas. Vascular structures: No AAA. The visceral vessels are patent. Patent portal and hepatic veins. Patent splenic and bilateral renal veins. No deep venous thrombosis. Peritoneum: No abdominal/pelvic ascites. Abdominal Wall: Unremarkable. Urinary bladder: Limited evaluation due to underdistention. Circumferential bladder wall thickening with mild mucosal hyperenhancement. Reproductive structures: Hysterectomy. MSK: Age-indeterminate compression fracture of L1 with approximately 20 % height loss and mild osseous retropulsion (), new compared to prior. No aggressive appearing lytic or blastic osseous lesion. Mild multilevel degenerative changes of the spine. IMPRESSION: 1. Age-indeterminate compression fracture of L1 with approximately 20 % height loss and mild osseous retropulsion, new compared to prior CT dated September 03, 2018. Correlate for point tenderness. 2. Normal CT appearance of the pancreas and right upper quadrant. Pancreatic duct is normal in caliber with no mass or peripancreatic inflammation. 3. Circumferential bladder wall thickening with mild mucosal hyper enhancement may be secondary to underdistention and/or cystitis of infectious or inflammatory etiology. Consider correlation with urinalysis and culture. Please note that all CT scans at this facility use dose modulation, iterative reconstruction, and/or weight-based dosing when appropriate to reduce radiation dose to as low as reasonably achievable. Dictated by Lisy Martinez MD @ 06/02/2023 7:43:48 PM (Electronically Signed)
[2023-06-02 18:38] LABS: RBC Urine 0-2 (0-2); Squamous Epithelial Cell Urine Few (None-Few); WBC Urine 0-2 (0-5)
== END 2023-06-02 20:18 | disposition home or self-care (01) ==
PROVIDERS: Emergency Provider Family Medicine; PCP Family Medicine
DX: R10.9 Unspecified abdominal pain (principal); F10.129 Alcohol abuse with intoxication, unspecified
CPT/HCPCS: 36415; 74177; 76705; 80048; 80076; 80143; 80179; 80306; 81001; 82077; 83605; 83690; 85025; 86140; 87086; 94761; 99284; 99285; A9270; J7030; Q9967

== ENCOUNTER 2023-08-22 09:26 | Emergency (ER) | payer BC, SELFPAY ==
[2023-08-22] VITALS (15 sets, daily range): BP systolic 102–122; BP diastolic 64–94; PULSE 60–86; RESP 20; TEMP 36.5; O2SAT 92–100; BMI 26.6
[2023-08-22] MEDS: 0.9 % SODIUM CHLORIDE 1000 ml 1,000 ML IV (10:09)
[2023-08-22] MEDS: LORazepam 2 MG/ML inj 1 MG IVP (10:09)
[2023-08-22 10:15] LABS: Lactate* 1.4 mmol/L (0.5-1.9)
[2023-08-22 10:16] LABS: Basophils Absolute Auto 0.02 K/uL (0.00-0.30); Basophils Percent Auto 0.4 % (0.0-3.0); Hematocrit 42.6 % (33.0-51.0); Hemoglobin* 14.2 gm/dL (12.0-16.0); Immature Granulocytes Abs Auto 0.01 K/uL (0.00-0.30); Immature Granulocytes Pct Auto 0.2 %; Lymphocytes Absolute Auto 1.35 K/uL (0.90-2.90); Lymphocytes Percent Auto 27.7 % (20-44); Mean Corpuscular HGB Conc 33 gm/dL (32-36); Mean Corpuscular Hemoglobin 33 pg (26-34); Mean Corpuscular Volume 100 fL (80-100); Monocytes Percent Auto 11.9 % (0.0-11.0); Neutrophils Absolute Auto 2.92 K/uL (1.7-7.0); Neutrophils Percent Auto 59.8 % (42.0-72.0); Platelet Count* 310 K/uL (140-440); RDW Coefficient of Variation % 11.9 % (11.5-15.5); Red Blood Count 4.27 m/uL (4.00-5.20); White Blood Count* 4.88 K/uL (4.50-11.00)
[2023-08-22 10:25] LABS: Slide Review Reflex No
[2023-08-22 10:34] LABS: Chloride* 107 mmol/L (96-114); Potassium* 3.9 mmol/L (3.6-5.1); Sodium* 139 mmol/L (135-149)
[2023-08-22 10:36] LABS: Albumin* 4.4 g/dL (3.3-5.0)
[2023-08-22 10:37] LABS: Creatinine* 0.6 mg/dL (0.5-1.5); Est. Creatinine Clearance* 96.84; Estimated Glomerular Filt Rate 105 ml/min
[2023-08-22 10:38] LABS: Anion Gap 12 mEq/L (7-15); Blood Urea Nitrogen* 7 mg/dL (7-30); Calcium* 9.4 mg/dL (8.4-10.6); Carbon Dioxide* 20 mmol/L (20-32); Glucose* 71 mg/dL (60-115)
[2023-08-22 10:39] LABS: Alkaline Phosphatase* 77 U/L (40-150); Aspartate Amino Transferase* 42 U/L (12-35); Bilirubin Direct* 0.1 mg/dL (0.0-0.5); Bilirubin Total* 0.5 mg/dL (0.1-1.5); Total Protein* 7.5 g/dL (6.0-8.3)
[2023-08-22 10:40] LABS: Alanine Aminotransferase* 23 U/L (4-35); C Reactive Protein* 2.1 mg/dL (0.5-1.0); Lipase* 46 U/L (23-300)
[2023-08-22 10:42] LABS: Acetaminophen* < 10.0 ug/mL (10.0-30.0); Ethanol* < 0.01 % (0.01-0.03)
[2023-08-22 10:49] LABS: Troponin I* 0.01 ng/mL (0.01-0.04)
[2023-08-22 10:52] LABS: Salicylate* < 1.0 mg/dL (1.0-10)
[2023-08-22 11:00] LABS: Magnesium* 2.1 mg/dL (1.5-2.6)
--- NOTE | 2023-08-22 11:49 | CRLHL7_ITS ---
For Patients: As a result of the Cures Act, medical imaging exams and procedure reports are released immediately into your electronic medical record. You may view this report before your referring provider. If you have questions, please contact your health care provider. CT ANGIOGRAM HEAD DATE: 08/22/2023 CLINICAL HISTORY: Patient with altered mental status. TECHNIQUE: Standard helical CT image acquisition through the intracranial circulation following intravenous administration of contrast material with bolus tracking. 2D and 3D MIP images for post-processing were performed and interpreted on an independent workstation and 3D images were permanently archived. COMPARISON: CT same day. FINDINGS: There is no proximal intracranial large vessel occlusion. There is no intracranial aneurysm. The right internal carotid artery is normal. The right middle cerebral artery and its branches are normal. The right anterior cerebral artery and its branches are normal. The left internal carotid artery is normal. The left middle cerebral artery and its branches are normal. The left anterior cerebral artery and its branches are normal. The anterior communicating artery is well visualized and appears normal. The right vertebral artery and PICA are normal. The left vertebral artery and PICA are normal. The left vertebral artery is dominant. The basilar artery is patent and appears normal. The right posterior cerebral artery is normal. The left posterior cerebral artery is normal. The visualized venous structures are patent. IMPRESSION: Patent proximal intracranial vasculature. Please note that all CT scans at this facility use dose modulation, iterative reconstruction, and/or weight-based dosing when appropriate to reduce radiation dose to as low as reasonably achievable. Dictated by: Gissel Antoine MD @ 08/22/2023 12:36:57 (Electronically Signed)
--- NOTE | 2023-08-22 11:49 | CRLHL7_ITS ---
For Patients: As a result of the Century Cures Act, medical imaging exams and procedure reports are released immediately into your electronic medical record. You may view this report before your referring provider. If you have questions, please contact your health care provider. CT HEAD DATE: 08/22/2023 CLINICAL HISTORY: Patient with altered mental status. TECHNIQUE: Standard CT scanning of the head was performed. COMPARISON: None. FINDINGS: There is no intracranial hemorrhage. There is no territorial infarction. There are mild microangiopathic changes. There is diffuse parenchymal volume loss. There is no mass effect or midline shift. The calvarium is unremarkable. The orbits are unremarkable. The paranasal sinuses are unremarkable. The mastoid air cells are unremarkable. The soft tissues are unremarkable. IMPRESSION: 1. No intracranial hemorrhage or territorial infarction. 2. Mild microangiopathic changes and diffuse parenchymal volume loss. Please note that all CT scans at this facility use dose modulation, iterative reconstruction, and/or weight-based dosing when appropriate to reduce radiation dose to as low as reasonably achievable. Dictated by: Gissel Antoine MD @ 08/22/2023 12:33:43 (Electronically Signed)
--- NOTE | 2023-08-22 11:49 | CRLHL7_ITS ---
For Patients: As a result of the Cures Act, medical imaging exams and procedure reports are released immediately into your electronic medical record. You may view this report before your referring provider. If you have questions, please contact your health care provider. CT ANGIOGRAM NECK DATE: 08/22/2023 CLINICAL HISTORY: Patient with altered mental status. TECHNIQUE: Standard helical CT image acquisition of the neck up to the skull base after bolus intravenous contrast enhancement. 2D and 3D MIP images for post-processing were performed and interpreted on an independent workstation and 3D images were permanently archived. COMPARISON: CT same day. FINDINGS: The origins of the great vessels from the aortic arch are patent. The origin of the right vertebral artery is patent. The origin of the left vertebral artery is patent. The common carotid arteries are patent. There is no stenosis at the origin of the right internal carotid artery. There is no stenosis at the origin of the left internal carotid artery. The rest of the cervical segments of the internal carotid arteries are patent up to the skull base. The left vertebral artery is dominant. The cervical segments of the vertebral arteries are patent up to the skull base. The visualized lung apices are unremarkable. The thyroid gland is unremarkable. The soft tissues of the neck are unremarkable. There are degenerative changes in the cervical spine. IMPRESSION: Normal CTA of the neck. Please note that all CT scans at this facility use dose modulation, iterative reconstruction, and/or weight-based dosing when appropriate to reduce radiation dose to as low as reasonably achievable. Dictated by: Gissel Antoine MD @ 08/22/2023 12:35:41 (Electronically Signed)
[2023-08-22 12:30] LABS: SARS PCR* Negative SARS-CoV-2 (Negative)
--- NOTE | 2023-08-22 12:35 | ED.GENADULT ---
HPI - General Adult General Chief complaint: Chest Pain <Pamela Martinez MD - Last Filed: 08/22/23 15:22> Stated complaint: Tremors,weakness <Pamela Martinez MD - Last Filed: 08/22/23 15:22> Time Seen by Provider: 08/22/23 09:48 <Pamela Martinez MD - Last Filed: 08/22/23 15:22> History of Present Illness HPI narrative: 58-year-old female with a history of alcohol use disorder, depression, anxiety presents today with ?inability to do anything?. She states that she texted her neighbor and told her neighbor that she could not do anything, her neighbor called EMS. When asked her what this means patient just says I do not know. Patient is not forthcoming with any information and really is not talking to me very much. She is slow to answer and is not following commands. Patient does still nursing that she ran out of her clonazepam approximately 1 week ago. <Pamela Martinez MD - Last Filed: 08/22/23 15:22> Related Data Home medications: Home Medications Medication Instructions Recorded Confirmed atenolol 50 mg tablet 50 mg PO DAILY 03/15/23 08/22/23 buspirone 10 mg tablet 10 mg PO TID 03/15/23 08/22/23 clonazepam 1 mg tablet 1 mg PO BID@07,12 03/15/23 08/22/23 levetiracetam 500 mg tablet 500 - 1,000 mg PO TID 03/15/23 08/22/23 primidone 50 mg tablet 100 mg PO TID 03/15/23 08/22/23 venlafaxine 150 mg 150 mg PO QAM 03/15/23 08/22/23 capsule,extended release 24 hr latanoprost 0.005 % eye drops 1 drp ophthalmic (eye) HS 06/02/23 08/22/23 cholecalciferol (vitamin D3) 25 25 mcg PO DAILY 08/22/23 08/22/23 mcg (1,000 unit) capsule lisinopril 10 mg tablet 10 mg PO DAILY 08/22/23 08/22/23 melatonin 3 mg capsule 3 mg PO HS PRN 08/22/23 08/22/23 Previous Rx's Medication Instructions Recorded lorazepam 0.5 mg tablet (Ativan) 0.5 mg PO BID PRN #10 tabs 08/22/23 <Pamela Martinez MD - Last Filed: 08/22/23 15:22> Allergies/adverse reactions: Allergies Allergy/AdvReac Type Severity Reaction Status Date / Time No Known Drug Allergies Allergy Verified 06/02/23 16:50 <Pamela Martinez MD - Last Filed: 08/22/23 15:22> Review of Systems Status of ROS: Reports: unobtainable due to mental status <Pamela Martinez MD - Last Filed: 08/22/23 15:22> PFSH [facility] Social History: Social History Smoking Status: Former smoker Non-prescribed substance use: denies use <Pamela Martinez MD - Last Filed: 08/22/23 15:22> Exam Narrative: Exam Narrative: Well-nourished well-developed patient in no acute distress. Patient is not following commands. She can answer questions but does not answer all of them. When she does answer she speaks very slowly. HEENT: Normocephalic atraumatic. Pupils are equally round reactive to light. Extraocular muscles are intact. Conjunctivae are moist without any icterus noted. Moist mucous membranes. Posterior pharynx is normal. Neck is soft without any lymphadenopathy or thyromegaly. No masses are appreciated. Cardiovascular: Heart is regular rate and rhythm S1 and S2 are present without any murmurs. Lungs: Clear to auscultation bilaterally no wheezes rhonchi or rales are appreciated. Patient takes deep breaths without any discomfort. Abdomen: Soft and nontender nondistended with normal bowel sounds. No guarding or rebound. No masses or organomegaly appreciated. Extremities: Bilateral lower extremities are without edema. Normal DP and PT pulses. Skin: Well perfused without any obvious rashes. Cannot assess for strength is patient is not follow commands. Reflexes are 2+ and symmetric at the knees. <Pamela Martinez MD - Last Filed: 08/22/23 15:22> Const: Vital Signs, click to edit/add: Vital Signs - 24 hr 08/22/23 09:42 08/22/23 10:00 08/22/23 10:30 Temperature 97.7 F Pulse Rate Pulse Rate [Pulse Oximeter] 60 60 Respiratory Rate 20 Blood Pressure Blood Pressure [Ri ght Upper Arm] 122/64 121/94 H 114/72 Pulse Oximetry 98 98 Oxygen Delivery Me thod Room Air Room Air 08/22/23 11:00 08/22/23 11:21 08/22/23 11:30 Temperature Pulse Rate 74 77 Pulse Rate [Pulse Oximeter] Respiratory Rate Blood Pressure Blood Pressure [Ri ght Upper Arm] 119/72 Pulse Oximetry 100 100 Oxygen Delivery Me thod 08/22/23 11:31 08/22/23 11:32 08/22/23 12:00 Temperature Pulse Rate 77 78 72 Pulse Rate [Pulse Oximeter] Respiratory Rate Blood Pressure 112/67 Blood Pressure [Ri ght Upper Arm] Pulse Oximetry 100 100 98 Oxygen Delivery Me thod 08/22/23 12:01 08/22/23 12:35 08/22/23 13:00 Temperature Pulse Rate 71 81 76 Pulse Rate [Pulse Oximeter] Respiratory Rate Blood Pressure 110/69 Blood Pressure [Ri ght Upper Arm] Pulse Oximetry 100 95 94 Oxygen Delivery Me thod 08/22/23 13:01 08/22/23 13:30 08/22/23 13:31 Temperature Pulse Rate 80 86 86 Pulse Rate [Pulse Oximeter] Respiratory Rate Blood Pressure 121/73 102/79 Blood Pressure [Ri ght Upper Arm] Pulse Oximetry 94 94 92 Oxygen Delivery Me thod <Pamela Martinez MD - Last Filed: 08/22/23 15:22> Vital Signs, click to edit/add: Vital Signs - 24 hr 08/22/23 09:42 08/22/23 10:00 08/22/23 10:30 Temperature 97.7 F Pulse Rate Pulse Rate [Pulse Oximeter] 60 60 Respiratory Rate 20 Blood Pressure Blood Pressure [Ri ght Upper Arm] 122/64 121/94 H 114/72 Pulse Oximetry 98 98 Oxygen Delivery Me thod Room Air Room Air 08/22/23 11:00 08/22/23 11:21 08/22/23 11:30 Temperature Pulse Rate 74 77 Pulse Rate [Pulse Oximeter] Respiratory Rate Blood Pressure Blood Pressure [Ri ght Upper Arm] 119/72 Pulse Oximetry 100 100 Oxygen Delivery Me thod 08/22/23 11:31 08/22/23 11:32 08/22/23 12:00 Temperature Pulse Rate 77 78 72 Pulse Rate [Pulse Oximeter] Respiratory Rate Blood Pressure 112/67 Blood Pressure [Ri ght Upper Arm] Pulse Oximetry 100 100 98 Oxygen Delivery Me thod 08/22/23 12:01 08/22/23 12:35 08/22/23 13:00 Temperature Pulse Rate 71 81 76 Pulse Rate [Pulse Oximeter] Respiratory Rate Blood Pressure 110/69 Blood Pressure [Ri ght Upper Arm] Pulse Oximetry 100 95 94 Oxygen Delivery Me thod 08/22/23 13:01 08/22/23 13:30 08/22/23 13:31 Temperature Pulse Rate 80 86 86 Pulse Rate [Pulse Oximeter] Respiratory Rate Blood Pressure 121/73 102/79 Blood Pressure [Ri ght Upper Arm] Pulse Oximetry 94 94 92 Oxygen Delivery Me thod <Jorge Almonte MD - Last Filed: 08/22/23 17:49> Course Course ED Course: IV is established and patient is given 0.5 mg of IV Ativan. EKG, read by me, shows sinus bradycardia with a pulse of 58 and an incomplete right bundle-branch block. Her blood work was unremarkable except that her CRP slightly elevated at 2.1. UA is positive for 3+ ketones, trace leukocyte esterase, 5-10 wbc's-however it is a poor specimen with moderate squamous epithelial cells. Urine drug screen is positive for barbiturates. Negative acetaminophen, salicylates and alcohol. After receiving fluids and degree examined patient and she was more awake and cooperative. At this time I am able to do a neurological exam patient has normal strength bilateral upper and lower extremities. She also tells me that her doctor keeps making skew says not to fill her clonazepam and she feels like she is likely withdrawing. She states that she does not want to live anymore. At this time a DEC assessment was ordered. Care transferred to [facility]. <Pamela Martinez MD - Last Filed: 08/22/23 15:22> Vital Signs Vital signs: Initial Vital Signs Temperature 97.7 F 08/22/23 09:42 Temperature Source Temporal Artery Scan 08/22/23 09:42 Pulse Rate 60 08/22/23 09:42 Respiratory Rate 20 08/22/23 09:42 Respiratory Effort Normal 08/22/23 09:42 Respiratory Depth Normal 08/22/23 09:42 Respiratory Pattern Normal 08/22/23 09:42 Blood Pressure 122/64 08/22/23 09:42 Blood Pressure Mean 83 08/22/23 09:42 Blood Pressure Position Supine 08/22/23 09:42 Pulse Oximetry 98 08/22/23 09:42 Oxygen Delivery Method Room Air 08/22/23 09:42 Vital Signs Temperature 97.7 F 08/22/23 09:42 Pulse Rate 60 08/22/23 09:42 Respiratory Rate 20 08/22/23 09:42 Blood Pressure 122/64 08/22/23 09:42 Pulse Oximetry 98 08/22/23 09:42 Oxygen Delivery Method Room Air 08/22/23 09:42 Temperature 97.7 F 08/22/23 09:42 Pulse Rate 86 08/22/23 13:31 Respiratory Rate 20 08/22/23 09:42 Blood Pressure 102/79 08/22/23 13:31 Pulse Oximetry 92 08/22/23 13:31 Oxygen Delivery Method Room Air 08/22/23 10:00 <Pamela Martinez MD - Last Filed: 08/22/23 15:22> Initial Vital Signs Temperature 97.7 F 08/22/23 09:42 Temperature Source Temporal Artery Scan 08/22/23 09:42 Pulse Rate 60 08/22/23 09:42 Respiratory Rate 20 08/22/23 09:42 Respiratory Effort Normal 08/22/23 09:42 Respiratory Depth Normal 08/22/23 09:42 Respiratory Pattern Normal 08/22/23 09:42 Blood Pressure 122/64 08/22/23 09:42 Blood Pressure Mean 83 08/22/23 09:42 Blood Pressure Position Supine 08/22/23 09:42 Pulse Oximetry 98 08/22/23 09:42 Oxygen Delivery Method Room Air 08/22/23 09:42 Vital Signs Temperature 97.7 F 08/22/23 09:42 Pulse Rate 60 08/22/23 09:42 Respiratory Rate 20 08/22/23 09:42 Blood Pressure 122/64 08/22/23 09:42 Pulse Oximetry 98 08/22/23 09:42 Oxygen Delivery Method Room Air 08/22/23 09:42 Temperature 97.7 F 08/22/23 09:42 Pulse Rate 86 08/22/23 13:31 Respiratory Rate 20 08/22/23 09:42 Blood Pressure 102/79 08/22/23 13:31 Pulse Oximetry 92 08/22/23 13:31 Oxygen Delivery Method Room Air 08/22/23 10:00 <Jorge Almonte MD - Last Filed: 08/22/23 17:49> Medical Decision Making MDM Narrative Medical decision making narrative: 58-year-old female probably withdrawing from benzodiazepines, depression. <Pamela Martinez MD - Last Filed: 08/22/23 15:22> 58-year-old female probably withdrawing from benzodiazepines, depression. Care for this patient was transferred to [place] at the end of Dr. Martinez's shift. The patient's workup was complete except for a [facility] health mental assessment. I did speak with the inside upholsterer who states that the patient is okay to return home and is not viewed to be a risk for self-harm. Arrangements are being made to follow-up with a psychiatrist and with her primary care physician. Also a appointment with a therapist is scheduled for next week. This patient had been taking 1 mg clonazepam tablets and ran out a week ago and has not had any since then. She is experiencing some symptoms of benzodiazepine withdrawal. I did provide a prescription for 10 tablets of Ativan 0.5 mg for her to help her with symptoms which she is already in toward for approximately a week. I advised her to take these sparingly and recommended that she completely discontinue clonazepam. She understands that we will not refill this medicine out of the emergency department. <Jorge Almonte MD - Last Filed: 08/22/23 17:49> Lab Data Lab results reviewed: Yes I reviewed the patient's lab results <Pamela Martinez MD - Last Filed: 08/22/23 15:22> Labs: Lab Results 08/22/23 08/22/23 08/22/23 Range/Units 09:54 09:55 10:08 WBC 4.88 (4.50-11.00) K/uL RBC 4.27 (4.00-5.20) m/uL Hgb 14.2 (12.0-16.0) gm/dL Hct 42.6 (33.0-51.0) % MCV 100 (80-100) fL MCH 33 (26-34) pg MCHC 33 (32-36) gm/dL RDW Coeff of Elliot 11.9 (11.5-15.5) % Plt Count 310 (140-440) K/uL Neut % (Auto) 59.8 (42.0-72.0) % Lymph % (Auto) 27.7 (20-44) % [place] % (Auto) 11.9 H (0.0-11.0) % Eos % (Auto) 0.0 (0.0-7.0) % Baso % (Auto) 0.4 (0.0-3.0) % Neut # (Auto) 2.92 (1.7-7.0) K/uL Lymph # (Auto) 1.35 (0.90-2.90) K/uL [place] # (Auto) 0.60 (0.00-0.90) K/UL Eos # (Auto) 0.00 (0.00-0.50) K/uL Baso # (Auto) 0.02 (0.00-0.30) K/uL Abs Immat Gran (auto) 0.01 (0.00-0.30) K/uL Imm/Tot Granulo (auto) 0.2 % Sodium 139 (135-149) mmol/L Potassium 3.9 (3.6-5.1) mmol/L Chloride 107 (96-114) mmol/L Carbon Dioxide 20 (20-32) mmol/L Anion Gap 12 (7-15) mEq/L BUN 7 (7-30) mg/dL Creatinine 0.6 (0.5-1.5) mg/dL Estimated Creat Clear 96.84 Estimated GFR 105 ml/min Glucose 71 (60-115) mg/dL Lactate 1.4 (0.5-1.9) mmol/L Calcium 9.4 (8.4-10.6) mg/dL Magnesium 2.1 (1.5-2.6) mg/dL Total Bilirubin 0.5 (0.1-1.5) mg/dL Direct Bilirubin 0.1 (0.0-0.5) mg/dL AST 42 H (12-35) U/L ALT 23 (4-35) U/L Alkaline Phosphatase 77 (40-150) U/L Troponin I 0.01 (0.01-0.04) ng/mL C-Reactive Protein 2.1 H (0.5-1.0) mg/dL Total Protein 7.5 (6.0-8.3) g/dL Albumin 4.4 (3.3-5.0) g/dL Lipase 46 (23-300) U/L Urine Color Yellow (Yellow) Urine Appearance Clear (Clear) Urine pH 5.5 (5.0-8.5) Ur Specific [place] 1.015 (1.000-1.030) Urine Protein Negative (Negative) Urine Glucose (UA) Negative (Negative) Urine Ketones 3+ A (Negative) Urine Blood Trace-intact A (Negative) Urine Nitrite Negative (Negative) Urine Bilirubin Negative (Negative) Urine Urobilinogen 0.2 (0.2-1.0) Ur Leukocyte Esterase Trace A (Negative) Urine RBC 0-2 (0-2) Urine WBC 5-10 A (0-5) Ur Squamous Epith Cells Moderate A (None-Few) Urine Bacteria Few A (None) Salicylates < 1.0 L (1.0-10) mg/dL Urine Opiates Screen Negative (Negative) Ur Oxycodone Screen Negative (Negative) Urine Methadone Screen Negative (Negative) Ur Propoxyphene Screen Negative (Negative) Acetaminophen < 10.0 L (10.0-30.0) ug/mL Ur Barbiturates Screen POSITIVE A (Negative) U Tricyclic Antidepress Negative (Negative) Ur Phencyclidine Scrn Negative (Negative) Ur Amphetamines Screen Negative (Negative) U Methamphetamines Scrn Negative (Negative) U Benzodiazepines Scrn Negative (Negative) Urine Cocaine Screen Negative (Negative) U Marijuana (THC) Screen Negative (Negative) Ur Drug Screen Comment See Note Ethyl Alcohol < 0.01 L (0.01-0.03) % SARS-CoV-2 (PCR) (Negative) POC Troponin I 0.00 L (0.01-0.04) ng/ml 08/22/23 Range/Units Unknown WBC (4.50-11.00) K/uL RBC (4.00-5.20) m/uL Hgb (12.0-16.0) gm/dL Hct (33.0-51.0) % MCV (80-100) fL MCH (26-34) pg MCHC (32-36) gm/dL RDW Coeff of Elliot (11.5-15.5) % Plt Count (140-440) K/uL Neut % (Auto) (42.0-72.0) % Lymph % (Auto) (20-44) % [place] % (Auto) (0.0-11.0) % Eos % (Auto) (0.0-7.0) % Baso % (Auto) (0.0-3.0) % Neut # (Auto) (1.7-7.0) K/uL Lymph # (Auto) (0.90-2.90) K/uL [place] # (Auto) (0.00-0.90) K/UL Eos # (Auto) (0.00-0.50) K/uL Baso # (Auto) (0.00-0.30) K/uL Abs Immat Gran (auto) (0.00-0.30) K/uL Imm/Tot Granulo (auto) % Sodium (135-149) mmol/L Potassium (3.6-5.1) mmol/L Chloride (96-114) mmol/L Carbon Dioxide (20-32) mmol/L Anion Gap (7-15) mEq/L BUN (7-30) mg/dL Creatinine (0.5-1.5) mg/dL Estimated Creat Clear Estimated GFR ml/min Glucose (60-115) mg/dL Lactate (0.5-1.9) mmol/L Calcium (8.4-10.6) mg/dL Magnesium (1.5-2.6) mg/dL Total Bilirubin (0.1-1.5) mg/dL Direct Bilirubin (0.0-0.5) mg/dL AST (12-35) U/L ALT (4-35) U/L Alkaline Phosphatase (40-150) U/L Troponin I (0.01-0.04) ng/mL C-Reactive Protein (0.5-1.0) mg/dL Total Protein (6.0-8.3) g/dL Albumin (3.3-5.0) g/dL Lipase (23-300) U/L Urine Color (Yellow) Urine Appearance (Clear) Urine pH (5.0-8.5) Ur Specific [place] (1.000-1.030) Urine Protein (Negative) Urine Glucose (UA) (Negative) Urine Ketones (Negative) Urine Blood (Negative) Urine Nitrite (Negative) Urine Bilirubin (Negative) Urine Urobilinogen (0.2-1.0) Ur Leukocyte Esterase (Negative) Urine RBC (0-2) Urine WBC (0-5) Ur Squamous Epith Cells (None-Few) Urine Bacteria (None) Salicylates (1.0-10) mg/dL Urine Opiates Screen (Negative) Ur Oxycodone Screen (Negative) Urine Methadone Screen (Negative) Ur Propoxyphene Screen (Negative) Acetaminophen (10.0-30.0) ug/mL Ur Barbiturates Screen (Negative) U Tricyclic Antidepress (Negative) Ur Phencyclidine Scrn (Negative) Ur Amphetamines Screen (Negative) U Methamphetamines Scrn (Negative) U Benzodiazepines Scrn (Negative) Urine Cocaine Screen (Negative) U Marijuana (THC) Screen (Negative) Ur Drug Screen Comment Ethyl Alcohol (0.01-0.03) % SARS-CoV-2 (PCR) Negative SARS-CoV-2 (Negative) POC Troponin I (0.01-0.04) ng/ml <Pamela Martinez MD - Last Filed: 08/22/23 15:22> Lab Results 08/22/23 08/22/23 08/22/23 Range/Units 09:54 09:55 10:08 WBC 4.88 (4.50-11.00) K/uL RBC 4.27 (4.00-5.20) m/uL Hgb 14.2 (12.0-16.0) gm/dL Hct 42.6 (33.0-51.0) % MCV 100 (80-100) fL MCH 33 (26-34) pg MCHC 33 (32-36) gm/dL RDW Coeff of Elliot 11.9 (11.5-15.5) % Plt Count 310 (140-440) K/uL Neut % (Auto) 59.8 (42.0-72.0) % Lymph % (Auto) 27.7 (20-44) % [place] % (Auto) 11.9 H (0.0-11.0) % Eos % (Auto) 0.0 (0.0-7.0) % Baso % (Auto) 0.4 (0.0-3.0) % Neut # (Auto) 2.92 (1.7-7.0) K/uL Lymph # (Auto) 1.35 (0.90-2.90) K/uL [place] # (Auto) 0.60 (0.00-0.90) K/UL Eos # (Auto) 0.00 (0.00-0.50) K/uL Baso # (Auto) 0.02 (0.00-0.30) K/uL Abs Immat Gran (auto) 0.01 (0.00-0.30) K/uL Imm/Tot Granulo (auto) 0.2 % Sodium 139 (135-149) mmol/L Potassium 3.9 (3.6-5.1) mmol/L Chloride 107 (96-114) mmol/L Carbon Dioxide 20 (20-32) mmol/L Anion Gap 12 (7-15) mEq/L BUN 7 (7-30) mg/dL Creatinine 0.6 (0.5-1.5) mg/dL Estimated Creat Clear 96.84 Estimated GFR 105 ml/min Glucose 71 (60-115) mg/dL Lactate 1.4 (0.5-1.9) mmol/L Calcium 9.4 (8.4-10.6) mg/dL Magnesium 2.1 (1.5-2.6) mg/dL Total Bilirubin 0.5 (0.1-1.5) mg/dL Direct Bilirubin 0.1 (0.0-0.5) mg/dL AST 42 H (12-35) U/L ALT 23 (4-35) U/L Alkaline Phosphatase 77 (40-150) U/L Troponin I 0.01 (0.01-0.04) ng/mL C-Reactive Protein 2.1 H (0.5-1.0) mg/dL Total Protein 7.5 (6.0-8.3) g/dL Albumin 4.4 (3.3-5.0) g/dL Lipase 46 (23-300) U/L Urine Color Yellow (Yellow) Urine Appearance Clear (Clear) Urine pH 5.5 (5.0-8.5) Ur Specific [place] 1.015 (1.000-1.030) Urine Protein Negative (Negative) Urine Glucose (UA) Negative (Negative) Urine Ketones 3+ A (Negative) Urine Blood Trace-intact A (Negative) Urine Nitrite Negative (Negative) Urine Bilirubin Negative (Negative) Urine Urobilinogen 0.2 (0.2-1.0) Ur Leukocyte Esterase Trace A (Negative) Urine RBC 0-2 (0-2) Urine WBC 5-10 A (0-5) Ur Squamous Epith Cells Moderate A (None-Few) Urine Bacteria Few A (None) Salicylates < 1.0 L (1.0-10) mg/dL Urine Opiates Screen Negative (Negative) Ur Oxycodone Screen Negative (Negative) Urine Methadone Screen Negative (Negative) Ur Propoxyphene Screen Negative (Negative) Acetaminophen < 10.0 L (10.0-30.0) ug/mL Ur Barbiturates Screen POSITIVE A (Negative) U Tricyclic Antidepress Negative (Negative) Ur Phencyclidine Scrn Negative (Negative) Ur Amphetamines Screen Negative (Negative) U Methamphetamines Scrn Negative (Negative) U Benzodiazepines Scrn Negative (Negative) Urine Cocaine Screen Negative (Negative) U Marijuana (THC) Screen Negative (Negative) Ur Drug Screen Comment See Note Ethyl Alcohol < 0.01 L (0.01-0.03) % SARS-CoV-2 (PCR) (Negative) POC Troponin I 0.00 L (0.01-0.04) ng/ml 08/22/23 Range/Units Unknown WBC (4.50-11.00) K/uL RBC (4.00-5.20) m/uL Hgb (12.0-16.0) gm/dL Hct (33.0-51.0) % MCV (80-100) fL MCH (26-34) pg MCHC (32-36) gm/dL RDW Coeff of Elliot (11.5-15.5) % Plt Count (140-440) K/uL Neut % (Auto) (42.0-72.0) % Lymph % (Auto) (20-44) % [place] % (Auto) (0.0-11.0) % Eos % (Auto) (0.0-7.0) % Baso % (Auto) (0.0-3.0) % Neut # (Auto) (1.7-7.0) K/uL Lymph # (Auto) (0.90-2.90) K/uL [place] # (Auto) (0.00-0.90) K/UL Eos # (Auto) (0.00-0.50) K/uL Baso # (Auto) (0.00-0.30) K/uL Abs Immat Gran (auto) (0.00-0.30) K/uL Imm/Tot Granulo (auto) % Sodium (135-149) mmol/L Potassium (3.6-5.1) mmol/L Chloride (96-114) mmol/L Carbon Dioxide (20-32) mmol/L Anion Gap (7-15) mEq/L BUN (7-30) mg/dL Creatinine (0.5-1.5) mg/dL Estimated Creat Clear Estimated GFR ml/min Glucose (60-115) mg/dL Lactate (0.5-1.9) mmol/L Calcium (8.4-10.6) mg/dL Magnesium (1.5-2.6) mg/dL Total Bilirubin (0.1-1.5) mg/dL Direct Bilirubin (0.0-0.5) mg/dL AST (12-35) U/L ALT (4-35) U/L Alkaline Phosphatase (40-150) U/L Troponin I (0.01-0.04) ng/mL C-Reactive Protein (0.5-1.0) mg/dL Total Protein (6.0-8.3) g/dL Albumin (3.3-5.0) g/dL Lipase (23-300) U/L Urine Color (Yellow) Urine Appearance (Clear) Urine pH (5.0-8.5) Ur Specific [place] (1.000-1.030) Urine Protein (Negative) Urine Glucose (UA) (Negative) Urine Ketones (Negative) Urine Blood (Negative) Urine Nitrite (Negative) Urine Bilirubin (Negative) Urine Urobilinogen (0.2-1.0) Ur Leukocyte Esterase (Negative) Urine RBC (0-2) Urine WBC (0-5) Ur Squamous Epith Cells (None-Few) Urine Bacteria (None) Salicylates (1.0-10) mg/dL Urine Opiates Screen (Negative) Ur Oxycodone Screen (Negative) Urine Methadone Screen (Negative) Ur Propoxyphene Screen (Negative) Acetaminophen (10.0-30.0) ug/mL Ur Barbiturates Screen (Negative) U Tricyclic Antidepress (Negative) Ur Phencyclidine Scrn (Negative) Ur Amphetamines Screen (Negative) U Methamphetamines Scrn (Negative) U Benzodiazepines Scrn (Negative) Urine Cocaine Screen (Negative) U Marijuana (THC) Screen (Negative) Ur Drug Screen Comment Ethyl Alcohol (0.01-0.03) % SARS-CoV-2 (PCR) Negative SARS-CoV-2 (Negative) POC Troponin I (0.01-0.04) ng/ml <Jorge Almonte MD - Last Filed: 08/22/23 17:49> Imaging Data CT scan - head: Attestation: I have reviewed the pertinent imaging results. <Pamela Martinez MD - Last Filed: 08/22/23 15:22> Radiologist's impression: CT HEAD DATE: 08/22/2023 CLINICAL HISTORY: Patient with altered mental status. TECHNIQUE: Standard CT scanning of the head was performed. COMPARISON: None. FINDINGS: There is no intracranial hemorrhage. There is no territorial infarction. There are mild microangiopathic changes. There is diffuse parenchymal volume loss. There is no mass effect or midline shift. The calvarium is unremarkable. The orbits are unremarkable. The paranasal sinuses are unremarkable. The mastoid air cells are unremarkable. The soft tissues are unremarkable. IMPRESSION: 1. No intracranial hemorrhage or territorial infarction. 2. Mild microangiopathic changes and diffuse parenchymal volume loss. <Pamela Martinez MD - Last Filed: 08/22/23 15:22> ECG Data Attestation: I personally reviewed and interpreted this ECG as follows: <Pamela Martinez MD - Last Filed: 08/22/23 15:22> Discharge Plan Discharge Clinical Impression: Benzodiazepine withdrawal <Pamela Martinez MD - Last Filed: 08/22/23 15:22> Patient Disposition: Home, Self-Care <Pamela Martinez MD - Last Filed: 08/22/23 15:22> Condition: Stable <Pamela Martinez MD - Last Filed: 08/22/23 15:22> Additional Instructions: Follow-up with primary physician for ongoing medication management. Follow-up also with therapist appointment scheduled for next week. A few tablets of Ativan are provided in a small dose which may help with some symptoms of benzodiazepine withdrawal. It is recommended that you discontinue clonazepam altogether, but consult with your primary physician regarding this. <Pamela Martinez MD - Last Filed: 08/22/23 15:22> Prescriptions: New lorazepam [Ativan] 0.5 mg tablet 0.5 mg PO BID PRNQty: 10 0RF No Action primidone 50 mg tablet 100 mg PO TID Rx Instructions: 2 tabs TID levetiracetam 500 mg tablet 500 - 1,000 mg PO TID Rx Instructions: 1000mg in the am, 1000mg at noon and 500 in the evening. clonazepam 1 mg tablet 1 mg PO BID@07,12 venlafaxine 150 mg capsule,extended release 24hr 150 mg PO QAM buspirone 10 mg tablet 10 mg PO TID atenolol 50 mg tablet 50 mg PO DAILY latanoprost 0.005 % drops 1 drp ophthalmic (eye) HS Rx Instructions: both eyes melatonin 3 mg capsule 3 mg PO HS PRN lisinopril 10 mg tablet 10 mg PO DAILY cholecalciferol (vitamin D3) 25 mcg (1,000 unit) capsule 25 mcg PO DAILY <Pamela Martinez MD - Last Filed: 08/22/23 15:22> Follow Up/Referrals: Aimee Acosta DO [Primary Care Provider] - <Pamela Martinez MD - Last Filed: 08/22/23 15:22> Stand Alone Forms: [employer] Info Instructions <Pamela Martinez MD - Last Filed: 08/22/23 15:22>
--- NOTE | 2023-08-22 12:40 | ED.NURSE ---
pt states feeling a little better. able to stand and sit on [id number] with sba. urine collected and sent to lab.
[2023-08-22 12:50] LABS: Amphetamine Screen Urine Negative (Negative); Barbiturate Screen Urine POSITIVE (Negative); Benzodiazepines Screen Urine Negative (Negative); Cannabinoid Screen Urine Negative (Negative); Cocaine Screen Urine Negative (Negative); Methadone Screen Urine Negative (Negative); Methamphetamines Screen Urine Negative (Negative); Opiate Screen Urine Negative (Negative); Oxycodone Screen Urine Negative (Negative); Phencyclidine Screen Urine Negative (Negative); Tricyclic Antidepressant Urine Negative (Negative)
[2023-08-22 12:59] LABS: Appearance Urine Clear (Clear); Bilirubin Urine Negative (Negative); Blood Urine Trace-intact (Negative); Color Urine Yellow (Yellow); Glucose Urine Negative (Negative); Ketones Urine 3+ (Negative); Leukocyte Esterase Urine Trace (Negative); Nitrite Urine Negative (Negative); Protein Urine Negative (Negative); Specific Gravity Urine 1.015 (1.000-1.030); Urobilinogen Urine 0.2 (0.2-1.0); pH Urine 5.5 (5.0-8.5)
[2023-08-22 13:01] LABS: Bacteria Urine Few; RBC Urine 0-2 (0-2); Squamous Epithelial Cell Urine Moderate (None-Few)
--- NOTE | 2023-08-22 14:00 | ED.NURSE ---
pt told dr. corbett she was suicidal. pt moved into room 2, on video monitoring. per dr. corbett heart monitor no longer needed.
--- NOTE | 2023-08-22 15:03 | ED.NURSE ---
pt tearful. eating lunch
--- NOTE | 2023-08-22 15:41 | ED.NURSE ---
pt up with walker to bathroom
[2023-08-22] MEDS: VENLAFAXINE ER 75 MG CAPSULE 150 MG PO (17:37)
[2023-08-22] MEDS: levETIRAcetam 500 MG TABLET 1000 MG PO (17:37)
[2023-08-22] MEDS: BUSPIRONE 10 MG TABLET PO (17:37)
[2023-08-22] MEDS: PRIMIDONE 50 MG TABLET 100 MG PO (17:37)
--- NOTE | 2023-08-22 18:08 | ED.NURSE ---
safety plan from DEC and dc instructions complete. sl dc'd intact. pt waiting for daughter to pick her up.
== END 2023-08-22 18:29 | disposition home or self-care (01) ==
PROVIDERS: Family Medicine; Emergency Provider Emergency Medicine Emergency Medical Services; PCP Family Medicine
DX: F19.239 Other psychoactive substance dependence with withdrawal, unspecified (principal)
CPT/HCPCS: 36415; 70450; 70496; 70498; 80048; 80076; 80143; 80179; 80306; 81001; 82077; 83605; 83690; 83735; 84484; 85025; 86140; 87086; 87186; 87635; 93005; 94761; 96361; 96374; 99284; 99285; A9270; J2060; J7030; Q9967